=== PATIENT | female | born 1970 | race Two or more races ===

== ENCOUNTER 2022-04-21 07:37 | Outpatient (CLI) | payer OTHER | END 2022-04-21 07:49 | disposition home or self-care (01) | LOC: EDBD 07:37 → MAMO-SONO 07:37 | PROVIDERS: ATTEND Obstetrics & Gynecology | DX: Z12.31 Encounter for screening mammogram for malignant neoplasm of breast (principal); N63.10 Unspecified lump in the right breast, unspecified quadrant; N63.20 Unspecified lump in the left breast, unspecified quadrant ==

== ENCOUNTER 2022-05-07 07:12 | Outpatient (CLI) | payer OTHER | END 2022-05-07 07:13 | disposition home or self-care (01) | LOC: LAB 07:12 | PROVIDERS: ATTEND Obstetrics & Gynecology | DX: N91.2 Amenorrhea, unspecified (principal); E34.9 Endocrine disorder, unspecified; E23.6 Other disorders of pituitary gland; N39.0 Urinary tract infection, site not specified; E55.9 Vitamin D deficiency, unspecified ==

== ENCOUNTER 2022-09-08 07:03 | Outpatient (CLI) | payer OTHER | END 2022-09-08 07:05 | disposition home or self-care (01) | LOC: LAB 07:03 | PROVIDERS: ATTEND Physical Medicine & Rehabilitation Pain Medicine | DX: E78.00 Pure hypercholesterolemia, unspecified (principal) ==

== ENCOUNTER → 2023-04-22 06:22 | Outpatient (CLI) | payer OTHER | END | disposition home or self-care (01) | LOC: LAB 06:22 | PROVIDERS: ATTEND Internal Medicine Cardiovascular Disease | DX: E78.00 Pure hypercholesterolemia, unspecified (principal) ==

== ENCOUNTER 2023-07-26 06:44 | Outpatient (CLI) | payer OTHER ==
[2023-07-26 09:24] LABS: CHOL HDL RATIO 2.7 (0-5.0); CREATININE SERUM 0.84 mg/dL (0.55-1.02); FREE TRIODOTIRONINE 2.56 pg/ml (2.18-3.98); GFR 71.77; POTASSIUM 4.3 mEq/L (3.5-5.1); T4 FREE 0.73 NG/ML (0.76-1.46); T4 TOTAL 6.26 UG/DL (4.8-13.9); TSH 2.83 uIU/mL (0.358-3.74)
== END 2023-07-26 06:45 | disposition home or self-care (01) ==
LOC: LAB 06:44
PROVIDERS: ATTEND Internal Medicine Cardiovascular Disease
DX: E78.00 Pure hypercholesterolemia, unspecified (principal)

== ENCOUNTER 2023-08-20 09:41 | Outpatient (CLI) | payer OTHER | END 2023-08-20 09:51 | disposition home or self-care (01) | LOC: MAMO-SONO 09:41 | PROVIDERS: ATTEND Obstetrics & Gynecology | DX: N63.10 Unspecified lump in the right breast, unspecified quadrant (principal); N63.20 Unspecified lump in the left breast, unspecified quadrant ==

== ENCOUNTER 2024-06-20 06:38 | Outpatient (CLI) | payer OTHER ==
[2024-06-20 07:38] LABS: URINE APPEARANCE Clear; URINE BILIRRUBIN Negative (NEGATIVE); URINE BLOOD Negative; URINE COLOR Yellow; URINE GLUCOSE Negative (NEGATIVE); URINE KETONE Negative (NEGATIVE); URINE LEUKOCYTE Negative; URINE NITRATE Negative; URINE PROTEIN Negative (NEGATIVE); URINE UROBILINOGEN 0.2 E.U./dl
[2024-06-20 07:42] LABS: URINE BACTERIA 8.8 uL (0.0-1933); URINE EPITHELIAL CELLS 3.2 uL (0.0-38.8); URINE RBC 6.1 uL (0.0-20.8); URINE WBC 3.8 uL (0.0-23.2)
[2024-06-20 07:43] LABS: URINE CAST 0.15 uL (0.0-1.40)
[2024-06-20 08:01] LABS: HEMATOCRIT 42.1 % (36.0-45.00); HEMOGLOBIN 14.2 g/dL (12.0-15.00); MEAN CELL VOLUME 93.3 fL (80.00-100.00); MEAN CORPUSCULAR HEMOGLOBIN 31.4 pg (27.00-32.0); MEAN CORPUSCULAR HGB CONC 33.6 g/dl (32.0-36.0); PLATELET COUNT 239 K/uL (150-450); RED BLOOD COUNT 4.51 M/uL (4.00-6.00); RED CELL DISTRIBUTION WIDTH 13.2 % (11.5-14.5)
[2024-06-20 08:43] LABS: ALBUMIN 3.9 gm/dL (3.4-5.0); BILIRUBIN TOTAL 0.83 mg/dL (0.3-1.2); CALCIUM 9.1 mg/dL (8.5-10.1); CHOL HDL RATIO 3.2 (0-5.0); CREATININE SERUM 0.82 mg/dL (0.55-1.02); GFR 73.49; GLOBULINA 2.7 G/DL (2.4-3.5); POTASSIUM 3.87 mEq/L (3.5-5.1); TOTAL PROTEIN 6.6 gm/dL (6.4-8.2); TSH 2.02 uIU/mL (0.358-3.74)
[2024-06-21 06:05] LABS: FOLLICLE STIMULATING HORMONE 2.4 mIU/mL (.); LEUTEINIZING HORMONE 0.5 mIU/mL (.); hav igm Negative (Negative); hcv Non Reactive (Non Reactive); hep b c Negative (Negative); hep b s ag Negative (Negative)
[2024-06-22 00:04] LABS: chla t Negative (Negative); neiss Negative (Negative)
== END 2024-06-20 06:44 | disposition home or self-care (01) ==
LOC: LAB 06:38
PROVIDERS: ATTEND Obstetrics & Gynecology
DX: E34.9 Endocrine disorder, unspecified (principal); N39.0 Urinary tract infection, site not specified; E78.5 Hyperlipidemia, unspecified; N91.2 Amenorrhea, unspecified; E78.9 Disorder of lipoprotein metabolism, unspecified; E55.9 Vitamin D deficiency, unspecified; E11.9 Type 2 diabetes mellitus without complications; D64.9 Anemia, unspecified; N73.9 Female pelvic inflammatory disease, unspecified; K75.9 Inflammatory liver disease, unspecified; N73.3 Female acute pelvic peritonitis; A60.04 Herpesviral vulvovaginitis; A60.00 Herpesviral infection of urogenital system, unspecified

== ENCOUNTER → 2024-07-19 06:57 | Outpatient (CLI) | payer OTHER ==
[2024-07-19 07:49] LABS: HEMATOCRIT 42.2 % (36.0-45.00); HEMOGLOBIN 14.4 g/dL (12.0-15.00); MEAN CELL VOLUME 92.6 fL (80.00-100.00); MEAN CORPUSCULAR HEMOGLOBIN 31.7 pg (27.00-32.0); MEAN CORPUSCULAR HGB CONC 34.2 g/dl (32.0-36.0); PLATELET COUNT 214 K/uL (150-450); RED BLOOD COUNT 4.56 M/uL (4.00-6.00); RED CELL DISTRIBUTION WIDTH 13.4 % (11.5-14.5)
[2024-07-19 08:38] LABS: CALCIUM 9.4 mg/dL (8.5-10.1); CHOL HDL RATIO 3.3 (0-5.0); CREATININE SERUM 0.99 mg/dL (0.55-1.02); GFR 59.13; POTASSIUM 4.36 mEq/L (3.5-5.1)
== END | disposition home or self-care (01) ==
LOC: LAB 06:57
DX: E78.1 Pure hyperglyceridemia (principal)